=== PATIENT | female | born 1995 | race Hispanic/Latino ===

== ENCOUNTER 2020-07-25 18:17 | Emergency (ER) | payer MEDICARE ==
[~2020-07-25] VITALS: Ht 154.9 cm; Wt 87.5 kg
[2020-07-25] MEDS ORDERED: KETOROLAC TROMETHAMINE 60 MG/2 ML VIAL IM NR (19:00)
[2020-07-25] MEDS ORDERED: KETOROLAC TROMETHAMINE 30 MG/ML VIAL ONE (19:08)
[2020-07-25] MEDS ORDERED: CYCLOBENZAPRINE5 MG PO (19:45)
[2020-07-25] MEDS ORDERED: NAPROSYN500 MG PO (19:45)
[2020-07-25 20:35] VITALS: BP 138/80
== END 2020-07-25 20:35 | disposition home or self-care (01) ==
LOC: FSED 18:42
DX: M54.42 Lumbago with sciatica, left side (principal); M54.2 Cervicalgia; J45.909 Unspecified asthma, uncomplicated; F17.210 Nicotine dependence, cigarettes, uncomplicated
CPT/HCPCS: 72040; 72100; 81003; 81025; 96372; 99283; J1885